=== PATIENT | male | born 1980 | race Caucasian/White ===

== ENCOUNTER 2020-02-10 09:55 | Emergency (ER) | payer OTHER ==
[2020-02-10] MEDS ORDERED: IBUPROFEN 600 MG TABLET (FP) PO ONE ×2 (10:09→10:12)
[2020-02-10 10:10] VITALS: BP 144/93; PULSE 107; TEMP 98.4; BMI 30.4
== END 2020-02-10 13:19 | disposition home or self-care (01) ==
LOC: FER 09:55
PROC: 2W3QX1Z Immobilization of Right Lower Leg using Splint (ICD-10-PCS; principal; 2020-02-10)
DX: S99.911A Unspecified injury of right ankle, initial encounter (principal); X50.9XXA Other and unspecified overexertion or strenuous movements or postures, initial encounter
CPT/HCPCS: 73590-TC-RT-FY; 73610-TC-RT-FY; 73630-TC-RT-FY; 99284-25